=== PATIENT | female | born 1970 | race Caucasian/White ===

== ENCOUNTER 2018-03-30 17:29 | Emergency (ER) | payer MEDICARE, MEDICAID ==
[~2018-03-30] VITALS: Ht 157.5 cm; Wt 80.4 kg
[~2018-03-30 17:29] MED LIST: FAMO20TA44 PO; OMEP20CA10 PO
[2018-03-30 17:30] VITALS: BP 146/94
== END 2018-03-30 17:52 | disposition home or self-care (01) ==
LOC: ER 17:30
DX: L20.9 Atopic dermatitis, unspecified (principal); J45.909 Unspecified asthma, uncomplicated; K21.9 Gastro-esophageal reflux disease without esophagitis; Z91.040 Latex allergy status
CPT/HCPCS: 99281

== ENCOUNTER 2019-09-20 06:36 | Emergency (ER) | payer MEDICARE, MEDICAID ==
[~2019-09-20] VITALS: Ht 157.5 cm; Wt 73.9 kg
[~2019-09-20 06:36] MED LIST changes: -OMEP20CA10 PO; +OMEP20CA11 PO
[2019-09-20 06:39] VITALS: BP 175/113
[2019-09-20] MEDS ORDERED: ketorolac trometh. 30mg/ml inj. IM ONE (06:55)
[2019-09-20] MEDS ORDERED: HYDROcodone/acetaminophen 10/325mg tab PO ONE (06:55)
[2019-09-20] MEDS ORDERED: HYDR-4353 PO (07:17)
== END 2019-09-20 07:33 | disposition home or self-care (01) ==
LOC: ER 06:37
DX: M25.561 Pain in right knee (principal); J45.909 Unspecified asthma, uncomplicated; K21.9 Gastro-esophageal reflux disease without esophagitis; Z98.890 Other specified postprocedural states; Z91.040 Latex allergy status; Z79.899 Other long term (current) drug therapy
CPT/HCPCS: 29505; 96372; 99283; J1885

== ENCOUNTER 2019-12-11 06:55 | Emergency (ER) | payer MEDICARE, MEDICAID ==
[~2019-12-11] VITALS: Ht 157.5 cm; Wt 74.0 kg
[~2019-12-11 06:55] MED LIST changes: -OMEP20CA11 PO; +OMEP20CA15 PO
[2019-12-11] MEDS ORDERED: normal saline 1000ML IV soln IVB ONE (07:00)
[2019-12-11] MEDS ORDERED: ondansetron/PF 4mg/2ml inj IV ONE (07:00)
[2019-12-11] MEDS ORDERED: ketorolac trometh. 30mg/ml inj. IV ONE (07:00)
[2019-12-11 07:26] LABS: BASOPHILS # (AUTO) 0.1 X10'3 (0-0.2); BASOPHILS % (AUTO) 0.4 % (0-1); EOSINOPHILS # (AUTO) 0.3 X10'3 (0-0.9); EOSINOPHILS % (AUTO) 2.3 % (0-6); HEMATOCRIT 40.8 % (35.0-45.0); HEMOGLOBIN 13.8 g/dl (12.0-16.0); LYMPHOCYTES # (AUTO) 2.3 X10'3 (1.1-4.8); LYMPHOCYTES % (AUTO) 19.2 % (21-51); MEAN CORPUSCULAR HEMOGLOBIN 28.1 PG (27.0-31.0); MEAN CORPUSCULAR HGB CONC 33.8 g/dL (33.0-36.5); MEAN CORPUSCULAR VOLUME 83.3 FL (78-98); MEAN PLATELET VOLUME 7.7 FL (7.4-10.4); MONOCYTES # (AUTO) 0.6 X10'3 (0-0.9); MONOCYTES % (AUTO) 4.7 % (2-12); NEUTROPHILS % (AUTO) 73.4 % (42-75); PLATELET COUNT 257 X10'3 (140-440); RED CELL DISTRIBUTION WIDTH 13.6 % (11.5-14.5); WHITE BLOOD COUNT 12.2 X10'3 (4.5-11.0)
[2019-12-11 07:40] LABS: ALANINE AMINOTRANSFERASE 31 U/L (12-78); ALBUMIN 4.3 G/DL (3.4-5.0); ALBUMIN/GLOBULIN RATIO 1.2 (1.1-1.5); ALKALINE PHOSPHATASE 90 IU/L (46-116); ANION GAP 10 (8-16); ASPARTATE AMINO TRANSFERASE 17 U/L (10-37); BILIRUBIN,TOTAL 0.3 MG/DL (0.1-1.0); BLOOD UREA NITROGEN 17 MG/DL (7-18); BUN/CREATININE RATIO 18.5 (6.6-38.0); CALCIUM 9.4 MG/DL (8.5-10.1); CHLORIDE 106 MMOL/L (99-107); CREATININE 0.92 MG/DL (0.40-0.90); GLUCOSE 122 MG/DL (70-104); POTASSIUM 4.3 MMOL/L (3.5-5.1); SODIUM 143 MMOL/L (135-145); TOTAL PROTEIN 7.9 G/DL (6.4-8.2); eGFR 65 ML/MIN
[2019-12-11 07:43] LABS: TROPONIN I < 0.04 NG/ML (0.0-0.05)
[2019-12-11 07:49] LABS: CLARITY,URINE SLIGHTLY CLOUDY (Clear); COLOR,URINE YELLOW (Yellow); GLUCOSE, URINE NEGATIVE (Neg); KETONES,URINE NEGATIVE (Neg); LEUKOCYTE ESTERASE ,URINE NEGATIVE (Neg); NITRITES, URINE NEGATIVE (Neg); OCCULT BLOOD,URINE SMALL (Neg); PH,URINE 5.5 (4.8-8.0); PROTEIN,URINE NEGATIVE (Neg); UROBILINOGEN,URINE 0.2 E.U/dL (0.2-1.0)
[2019-12-11 07:50] LABS: UA COLLECTION TYPE CLN CATCH MIDSTREAM
[2019-12-11 07:55] LABS: AMORPHOUS URATES 1+; BACTERIA,URINE FEW /HPF (Neg); MUCUS STRANDS MODERATE /LPF (Neg); RBC,URINE 0-2 /HPF (0-2); SQUAMOUS EPITHELIAL CELL,UR MODERATE /LPF (FEW); WBC,URINE 0-4 /HPF (0-4)
[2019-12-11] MEDS ORDERED: proCHLORperazine 10 MG/2 ml inj IV ONE (08:00)
[2019-12-11] MEDS ORDERED: LOPE2CAP PO (08:00)
[2019-12-11] MEDS ORDERED: ONDA8TAB6 PO (08:00)
[2019-12-11 08:33] VITALS: BP 128/83
== END 2019-12-11 08:34 | disposition home or self-care (01) ==
LOC: ER 06:56
DX: K52.9 Noninfective gastroenteritis and colitis, unspecified (principal); R55 Syncope and collapse; R51 Headache; J45.909 Unspecified asthma, uncomplicated; K21.9 Gastro-esophageal reflux disease without esophagitis; Z98.890 Other specified postprocedural states; Z91.040 Latex allergy status; Z79.899 Other long term (current) drug therapy
CPT/HCPCS: 36415; 80053; 81001; 84484; 85025; 93005; 96361; 96374; 96375; 99284; J0780; J1885; J2405; J7030

== ENCOUNTER 2021-06-19 12:57 | Emergency (ER) | payer MEDICARE, MEDICAID ==
[~2021-06-19] VITALS: Ht 157.5 cm; Wt 80.2 kg
[~2021-06-19 12:57] MED LIST changes: +LOPE2CAP PO; +ONDA8TAB6 PO
[2021-06-19 13:29] LABS: BASOPHILS % (AUTO) 0.8 % (0-1); EOSINOPHILS # (AUTO) 0.1 X10'3 (0-0.9); HEMATOCRIT 43.2 % (35.0-45.0); HEMOGLOBIN 14.5 g/dl (12.0-16.0); LYMPHOCYTES # (AUTO) 1.8 X10'3 (1.1-4.8); LYMPHOCYTES % (AUTO) 51.1 % (21-51); MEAN CORPUSCULAR HEMOGLOBIN 28.6 PG (27.0-31.0); MEAN CORPUSCULAR HGB CONC 33.5 g/dL (33.0-36.5); MEAN CORPUSCULAR VOLUME 85.4 FL (78-98); MEAN PLATELET VOLUME 7.4 FL (7.4-10.4); MONOCYTES # (AUTO) 0.3 X10'3 (0-0.9); MONOCYTES % (AUTO) 9.3 % (2-12); NEUTROPHILS # (AUTO) 1.3 X10'3 (1.8-7.7); NEUTROPHILS % (AUTO) 36.8 % (42-75); PLATELET COUNT 241 X10'3 (140-440); RED BLOOD COUNT 5.06 X10'6 (4.20-5.60); RED CELL DISTRIBUTION WIDTH 13.5 % (11.5-14.5); WHITE BLOOD COUNT 3.5 X10'3 (4.5-11.0)
[2021-06-19 13:45] LABS: ALANINE AMINOTRANSFERASE 51 U/L (12-78); ALBUMIN/GLOBULIN RATIO 0.9 (1.1-1.5); ALKALINE PHOSPHATASE 87 IU/L (46-116); ANION GAP 8 (8-16); ASPARTATE AMINO TRANSFERASE 29 U/L (10-37); BILIRUBIN,TOTAL 0.3 MG/DL (0.1-1.0); BLOOD UREA NITROGEN 13 MG/DL (7-18); BUN/CREATININE RATIO 16.5 (6.6-38.0); CALCIUM 8.7 MG/DL (8.5-10.1); CHLORIDE 102 MMOL/L (99-107); CREATININE 0.79 MG/DL (0.40-0.90); GLUCOSE 98 MG/DL (70-104); POTASSIUM 4.1 MMOL/L (3.5-5.1); SODIUM 140 MMOL/L (135-145); TOTAL CARBON DIOXIDE 30.3 MMOL/L (24-32); TOTAL PROTEIN 8.4 G/DL (6.4-8.2); eGFR 77 ML/MIN
[2021-06-19 15:52] LABS: CLARITY,URINE CLOUDY (Clear); COLOR,URINE YELLOW (Yellow); GLUCOSE, URINE NEGATIVE (Neg); KETONES,URINE NEGATIVE (Neg); LEUKOCYTE ESTERASE ,URINE NEGATIVE (Neg); NITRITES, URINE NEGATIVE (Neg); OCCULT BLOOD,URINE NEGATIVE (Neg); PROTEIN,URINE TRACE mg/dl (Neg); UROBILINOGEN,URINE 0.2 E.U/dL (0.2-1.0)
[2021-06-19 15:54] LABS: UA COLLECTION TYPE CLN CATCH MIDSTREAM
[2021-06-19 15:59] LABS: MUCUS STRANDS MANY /LPF (Neg); SQUAMOUS EPITHELIAL CELL,UR MANY /LPF (FEW); TRANSITIONAL EPI CELLS,URINE FEW /HPF
[2021-06-19 16:00] LABS: AMMONIUM BIURATE CRYSTALS FEW /HPF (NEGATIVE); BACTERIA,URINE 3+ /HPF (Neg); RBC,URINE 0-2 /HPF (0-2); WBC,URINE 0-4 /HPF (0-4)
[2021-06-19 17:14] VITALS: BP 121/92
== END 2021-06-19 17:16 | disposition home or self-care (01) ==
LOC: ER 12:58
DX: T67.9XXA Effect of heat and light, unspecified, initial encounter (principal); R42 Dizziness and giddiness; J45.909 Unspecified asthma, uncomplicated; K21.9 Gastro-esophageal reflux disease without esophagitis; Z98.890 Other specified postprocedural states; Z91.040 Latex allergy status; Z79.899 Other long term (current) drug therapy; X58.XXXA Exposure to other specified factors, initial encounter; Y93.89 Activity, other specified; Y92.89 Other specified places as the place of occurrence of the external cause; Y99.8 Other external cause status
CPT/HCPCS: 36415; 80053; 81001; 85025; 93005; 99284

== ENCOUNTER 2023-04-15 05:16 | Emergency (ER) | payer MEDICARE, MEDICAID ==
[~2023-04-15] VITALS: Ht 157.5 cm; Wt 90.0 kg
[2023-04-15 05:29] VITALS: BP 155/94
[2023-04-15] MEDS ORDERED: prednisoLONE 15mg/5ml oral solution 5ml cup PO STA (06:47)
[2023-04-15] MEDS ORDERED: AMOX-117 PO (06:50)
[2023-04-15] MEDS ORDERED: CHLO473M3 PO (06:50)
[2023-04-15] MEDS ORDERED: amox tr/potassium clavulanate 875/125mg TAB PO ONE (06:50)
== END 2023-04-15 09:19 | disposition home or self-care (01) ==
LOC: ER 05:17
DX: J02.9 Acute pharyngitis, unspecified (principal); J45.909 Unspecified asthma, uncomplicated; K21.9 Gastro-esophageal reflux disease without esophagitis; Z91.040 Latex allergy status
CPT/HCPCS: 99283; J7510

== ENCOUNTER 2024-05-07 04:13 | Emergency (ER) | payer MEDICARE, MEDICAID ==
[~2024-05-07] VITALS: Ht 160 cm; Wt 94.0 kg
[~2024-05-07 04:13] MED LIST changes: +CHLO473M3 PO
[2024-05-07 05:03] LABS: URINE HCG NEGATIVE (NEG)
[2024-05-07 05:31] LABS: BILIRUBIN,URINE NEGATIVE (Neg); CLARITY,URINE CLEAR (Clear); COLOR,URINE YELLOW (Yellow); GLUCOSE, URINE NEGATIVE (Neg); KETONES,URINE NEGATIVE (Neg); LEUKOCYTE ESTERASE ,URINE TRACE (Neg); NITRITES, URINE NEGATIVE (Neg); OCCULT BLOOD,URINE NEGATIVE (Neg); PH,URINE 6.5 (4.8-8.0); PROTEIN,URINE NEGATIVE (Neg); UROBILINOGEN,URINE 0.2 E.U/dL (0.2-1.0)
[2024-05-07 05:41] LABS: UA COLLECTION TYPE CLN CATCH MIDSTREAM
[2024-05-07 05:44] LABS: RBC,URINE NONE SEEN /HPF (0-2); WBC,URINE 0-4 /HPF (0-4)
[2024-05-07 05:45] LABS: BACTERIA,URINE FEW /HPF (Neg); MUCUS STRANDS NONE SEEN /LPF (Neg); SQUAMOUS EPITHELIAL CELL,UR FEW /LPF (FEW)
[2024-05-07 05:51] LABS: ALANINE AMINOTRANSFERASE 82 U/L (12-78); ALBUMIN 3.9 G/DL (3.4-5.0); ALBUMIN/GLOBULIN RATIO 0.9 (1.1-1.5); ALKALINE PHOSPHATASE 102 IU/L (46-116); ANION GAP 9 (8-16); ASPARTATE AMINO TRANSFERASE 28 U/L (10-37); BILIRUBIN,TOTAL 0.4 MG/DL (0.1-1.0); BLOOD UREA NITROGEN 14 MG/DL (7-18); BUN/CREATININE RATIO 12.7 (10.0-20.0); CALCIUM 9.4 MG/DL (8.5-10.1); CHLORIDE 104 MMOL/L (99-107); GLUCOSE 108 MG/DL (70-104); LIPASE 40 U/L (16-77); POTASSIUM 3.8 MMOL/L (3.5-5.1); SODIUM 141 MMOL/L (135-145); TOTAL CARBON DIOXIDE 27.9 MMOL/L (24-32); TOTAL PROTEIN 8.1 G/DL (6.4-8.2); eCRCL 49 ML/MIN; eGFR 52 ML/MIN
[2024-05-07 06:01] LABS: BASOPHILS # (AUTO) 0.1 X10'3 (0-0.2); EOSINOPHILS # (AUTO) 0.6 X10'3 (0-0.9); EOSINOPHILS % (AUTO) 5.3 % (0-6); HEMATOCRIT 40.7 % (35.0-45.0); HEMOGLOBIN 13.6 g/dl (12.0-16.0); LYMPHOCYTES # (AUTO) 5.8 X10'3 (1.1-4.8); LYMPHOCYTES % (AUTO) 49.4 % (21-51); MEAN CORPUSCULAR HEMOGLOBIN 28.2 PG (27.0-31.0); MEAN CORPUSCULAR HGB CONC 33.4 g/dL (33.0-36.5); MEAN CORPUSCULAR VOLUME 84.6 FL (78-98); MEAN PLATELET VOLUME 7.7 FL (7.4-10.4); MONOCYTES # (AUTO) 0.9 X10'3 (0-0.9); MONOCYTES % (AUTO) 7.4 % (2-12); NEUTROPHILS # (AUTO) 4.3 X10'3 (1.8-7.7); NEUTROPHILS % (AUTO) 36.9 % (42-75); PLATELET COUNT 334 X10'3 (140-440); RED BLOOD COUNT 4.81 X10'6 (4.20-5.60); RED CELL DISTRIBUTION WIDTH 13.7 % (11.5-14.5); WHITE BLOOD COUNT 11.7 X10'3 (4.5-11.0)
[2024-05-07 07:00] VITALS: BP 147/81; PULSE 67; RESP 16; TEMP 98; O2SAT 95
== END 2024-05-07 07:00 | disposition home or self-care (01) ==
LOC: ER 04:13
DX: R10.84 Generalized abdominal pain (principal); J45.909 Unspecified asthma, uncomplicated; K21.9 Gastro-esophageal reflux disease without esophagitis; Z98.890 Other specified postprocedural states
CPT/HCPCS: 36415; 80053; 81001; 81025; 83690; 85025; 87088; 99285

== ENCOUNTER 2024-12-19 09:51 | Emergency (ER) | payer MEDICARE, MEDICAID ==
[~2024-12-19] VITALS: Ht 154.9 cm; Wt 101.0 kg
[~2024-12-19 09:51] MED LIST changes: +CHLO473M13 PO; -CHLO473M3 PO
[2024-12-19 10:35] LABS: BASOPHILS # (AUTO) 0.1 X10'3 (0-0.2); BASOPHILS % (AUTO) 0.6 % (0-1); EOSINOPHILS # (AUTO) 0.3 X10'3 (0-0.9); EOSINOPHILS % (AUTO) 2.9 % (0-6); HEMOGLOBIN 13.4 g/dl (12.0-16.0); LYMPHOCYTES # (AUTO) 2.9 X10'3 (1.1-4.8); LYMPHOCYTES % (AUTO) 25.3 % (21-51); MEAN CORPUSCULAR HEMOGLOBIN 28.6 PG (27.0-31.0); MEAN CORPUSCULAR HGB CONC 33.5 g/dL (33.0-36.5); MEAN CORPUSCULAR VOLUME 85.6 FL (78-98); MEAN PLATELET VOLUME 7.5 FL (7.4-10.4); MONOCYTES # (AUTO) 0.7 X10'3 (0-0.9); MONOCYTES % (AUTO) 5.8 % (2-12); NEUTROPHILS # (AUTO) 7.6 X10'3 (1.8-7.7); NEUTROPHILS % (AUTO) 65.4 % (42-75); PLATELET COUNT 290 X10'3 (140-440); RED BLOOD COUNT 4.68 X10'6 (4.20-5.60); RED CELL DISTRIBUTION WIDTH 13.7 % (11.5-14.5); WHITE BLOOD COUNT 11.7 X10'3 (4.5-11.0)
[2024-12-19 10:57] LABS: ALANINE AMINOTRANSFERASE 46 U/L (12-78); ALKALINE PHOSPHATASE 95 IU/L (46-116); ANION GAP 10 (8-16); ASPARTATE AMINO TRANSFERASE 24 U/L (10-37); BILIRUBIN,TOTAL 0.5 MG/DL (0.1-1.0); BLOOD UREA NITROGEN 15 MG/DL (7-18); BUN/CREATININE RATIO 19.7 (10.0-20.0); CALCIUM 9.5 MG/DL (8.5-10.1); CHLORIDE 107 MMOL/L (99-107); CREATININE 0.76 MG/DL (0.40-0.90); GLUCOSE 113 MG/DL (70-104); POTASSIUM 3.8 MMOL/L (3.5-5.1); SODIUM 143 MMOL/L (135-145); TOTAL CARBON DIOXIDE 26.3 MMOL/L (24-32); eCRCL 64 ML/MIN; eGFR 79 ML/MIN
[2024-12-19] MEDS: methylPREDNISolone sod succ 125mg/2ml vial IV ONE (11:01)
[2024-12-19 11:03] LABS: PRO BRAIN NATRIURETIC PEPTIDE 30 PG/ML (0-125)
[2024-12-19] MEDS ORDERED: PRED50TA PO (12:22)
[2024-12-19 12:36] VITALS: BP 112/78; PULSE 67; RESP 12; TEMP 98.2; O2SAT 97
== END 2024-12-19 12:39 | disposition home or self-care (01) ==
LOC: ER 09:51
DX: R07.89 Other chest pain (principal); M25.512 Pain in left shoulder; M25.511 Pain in right shoulder; J45.909 Unspecified asthma, uncomplicated; K21.9 Gastro-esophageal reflux disease without esophagitis; Z91.040 Latex allergy status; Z98.890 Other specified postprocedural states
CPT/HCPCS: 36415; 71045; 80053; 83880; 84484; 85025; 93005; 96374; 99285; J2919

== ENCOUNTER 2025-03-17 07:58 | Day surgery (SDC) | payer MEDICARE, MEDICAID ==
[~2025-03-17] VITALS: Ht 152.4 cm; Wt 88.6 kg
[~2025-03-17 07:58] MED LIST changes: +A RED PO; +ALBUTEROL; +ATOR20TA66 PO; +CETI10TA14 PO; -CHLO473M13 PO; +CYAN50007 PO; +ERGO400C PO; -FAMO20TA44 PO; +FLUT12AE2; +LISI30TA4 PO; -LOPE2CAP PO; +MULT-1085 PO; +OMEG1CAP46 PO; -OMEP20CA15 PO; -ONDA8TAB6 PO; +PANT40TA54 PO
[2025-03-17 08:23] VITALS: BP 139/86; PULSE 85; RESP 15; TEMP 97.7
[2025-03-17] MEDS ORDERED: fentaNYL/PF 50MCG/1 ML 2ML syringe ONE (09:42)
[2025-03-17] MEDS ORDERED: propofol inj 20 ML IV ONE (09:42)
[2025-03-17] MEDS ORDERED: midazolam 1 mg/ML 2ml injection ONE (09:42)
[2025-03-17 10:15] VITALS: BP 114/65; PULSE 73; RESP 10; O2SAT 100
[2025-03-17 10:25] VITALS: BP 120/80; PULSE 74; RESP 12; O2SAT 99
[2025-03-17 10:35] VITALS: BP 116/76; PULSE 65; RESP 12; O2SAT 99
[2025-03-17 10:45] VITALS: BP 126/72; PULSE 70; RESP 14; O2SAT 100
--- NOTE | 2025-03-21 07:04 | PATHOLOGY REPORT ---
[facility] [address] [place] [address] SURGICAL PATHOLOGY REPORT CaseNumber: [id number] Surgeon:Kilo Pérez M.D. CLINICAL INFORMATION CLINICAL INFORMATION: Screening for colorectal malignant neoplasm. FH colon cancer in a maternal uncl e. DIAGNOSIS DIAGNOSIS: COLON, CECUM; BIOPSY - TUBULAR ADENOMA. MICROSCOPIC DESCRIPTION MICROSCOPIC DESCRIPTION: One slide is examined. Performed. (st) GROSS DESCRIPTION GROSS DESCRIPTION: Received in a container of formalin labeled with the patient's name, number, and " cecum polyp" is a 0.6 x 0.4 x 0.2 cm polypoid piece of andrade tissue. The specimen is bisected. The spe cimen is entirely submitted as A1. The time at which the specimen was removed was 1002. The time at [facility] the specimen was placed in formalin was 1003. Electronically signed by: Delvis Giordano M.D. 03/20/2025 7:40:00 PM
== END 2025-03-17 10:50 | disposition home or self-care (01) ==
LOC: GI LAB 07:58
PROVIDERS: ATTEND Internal Medicine Gastroenterology
DX: Z12.11 Encounter for screening for malignant neoplasm of colon (principal); D12.0 Benign neoplasm of cecum; K64.8 Other hemorrhoids; K57.30 Diverticulosis of large intestine without perforation or abscess without bleeding; J45.909 Unspecified asthma, uncomplicated; I10 Essential (primary) hypertension; K21.9 Gastro-esophageal reflux disease without esophagitis; Z98.890 Other specified postprocedural states; Z91.040 Latex allergy status; Z79.899 Other long term (current) drug therapy
CPT/HCPCS: 45385; A4620; C1889; J2250; J2704; J3010; J7030; Z7512